=== PATIENT | male | born 1970 | race Caucasian/White ===

== ENCOUNTER 2020-11-29 17:15 | Emergency (ER) | payer OTHER ==
[~2020-11-29] VITALS: Ht 172.7 cm; Wt 81.7 kg
[2020-11-29] MEDS ORDERED: GABA300 PO (18:24)
== END 2020-11-29 19:37 | disposition home or self-care (01) ==
LOC: ER 17:15
DX: S51.811A Laceration without foreign body of right forearm, initial encounter (principal); W01.198A Fall on same level from slipping, tripping and stumbling with subsequent striking against other object, initial encounter; Y93.89 Activity, other specified; Y92.828 Other wilderness area as the place of occurrence of the external cause
CPT/HCPCS: 12002; 90471; 90714; 99283-25